=== PATIENT | male | born 1945 | race American Indian/Alaskan Native ===

== ENCOUNTER → 2025-04-03 17:36 | Outpatient (REF) | payer MEDICARE, SELFPAY | LOC: RAD 17:36 | PROVIDERS: ATTENDING PHYSICIAN Nurse Practitioner Acute Care; FAMILY PHYSICIAN Surgery; OTHER PHYSICIAN Internal Medicine | DX: Z95.1 Presence of aortocoronary bypass graft (principal) | CPT/HCPCS: 71046 ==

== ENCOUNTER → 2025-10-13 10:55 | Outpatient (REF) | payer MEDICARE, SELFPAY | LOC: RAD 10:55 | PROVIDERS: FAMILY PHYSICIAN Internal Medicine; OTHER PHYSICIAN Surgery | DX: I99.8 Other disorder of circulatory system (principal) | CPT/HCPCS: 93923; 93978 ==